=== PATIENT | male | born 1965 | race African-American/Black ===

== ENCOUNTER → 2017-02-08 | Outpatient (CLI) | payer OTHER ==
[2016-04-18 16:30] VITALS: BP 138/90
--- NOTE | 2017-02-08 11:43 | RAD ---
Lumbar spine radiographs 02/08/2017 at 1107 hours Indication: Lower back and right leg pain Comparison: 06/10/2010 lumbar radiograph Technique: 3 views of the lumbar spine are provided Findings: There are 5 non rib-bearing lumbar type vertebral bodies. Multilevel anterior osteophytosis. Alignment of the lumbar spine is normal. Mild multilevel disc space narrowing. Mild degenerative disc disease at L1-L2, L2-L3, L3-L4 and to a lesser extent L4-L5. Mild to moderate facet arthropathy at L4-L5 and L5-S1. No evidence for spondylolysis or spondylolisthesis. No acute fracture. No significant soft tissue abnormality identified. Mild atherosclerotic calcification of the abdominal aorta. Impression: No acute fracture or malalignment of the lumbar spine. Mild multilevel degenerative disc disease, not significantly changed since prior examination.
--- NOTE | 2017-02-08 16:02 | RAD ---
Chest radiograph 02/08/2017 at 1107 hours Indication: Asthma, hypertension Comparison: Acute abdominal series 10/18/2015 Technique: PA and lateral views of the chest are provided. Findings: Cardiomediastinal silhouette is within normal limits. No pleural effusions, pulmonary vascular congestion or pneumothorax. The lungs are clear. Mild anterior wedging of a lower thoracic vertebrae, likely chronic. Mild degenerative changes of the thoracic spine are noted. Impression: No acute cardiopulmonary process.
== END | disposition home or self-care (01) ==
LOC: RAD 10:28
PROVIDERS: ATTEND Internal Medicine Infectious Disease
DX: I10 Essential (primary) hypertension (principal); J45.909 Unspecified asthma, uncomplicated; M47.894 Other spondylosis, thoracic region; M51.36 Other intervertebral disc degeneration, lumbar region; M48.06 Spinal stenosis, lumbar region; I70.0 Atherosclerosis of aorta; M12.88 Other specific arthropathies, not elsewhere classified, other specified site
CPT/HCPCS: 71020; 72100